=== PATIENT | female | born 1990 | race Two or more races ===

== ENCOUNTER → 2020-09-26 15:31 | Outpatient (CLI) | payer MEDICAID, SELFPAY ==
--- NOTE | 2020-09-26 15:37 | US_ITS ---
PROCEDURE: US TRANSVAGINAL CLINICAL INDICATION: US T/V- pelvic pain cysts COMPARISON: No exams were available for comparison FINDINGS: UTERUS: 8cm x 4cmx 3cm with a combined endometrial thickness of 6.3mm LEFT OVARY: [id number] with a volume of 4.7ml. RIGHT OVARY: [id number] with a volume of 4.6ml. IMPRESSION: Negative pelvic ultrasound Dictated by: Carmelo Miller MD 09/27/2020 18:47 Carmelo Miller MD in [facility] 09/27/2020 18:47
== END ==
PROVIDERS: PCP Physician Assistant; Visit Provider Obstetrics & Gynecology
DX: R10.2 Pelvic and perineal pain (principal); N83.209 Unspecified ovarian cyst, unspecified side
CPT/HCPCS: 76830